=== PATIENT | male | born 2000 | race Caucasian/White ===

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

== ENCOUNTER 2022-03-01 19:00 | Outpatient (REF) | payer BC, SELFPAY ==
[2022-03-02 18:28] LABS: Bilirubin Negative (Negative); Blood Negative (Negative); Clarity Clear (Clear); Glucose Negative (Negative); Ketones Negative (Negative); Leukocyte Esterase Negative (Negative); Nitrite Negative (Negative); Specific Gravity 1.025 (1.005-1.025); Urobilinogen 0.2 EU/dL (Up TO 0.2)
[2022-03-02 20:38] LABS: Bacteria Negative HPF (Negative); C & S Indicated? No; Casts Negative LPF (Negative); Crystals Negative HPF (Negative); Epithelial Cells Negative HPF (Negative); Mucus Negative (Negative); Other Cells Negative (Negative); RBC Negative HPF (0-2); WBC Negative HPF (0-5)
== END 2022-03-01 19:01 | disposition home or self-care (01) ==
LOC: NCHCN 19:00
PROVIDERS: PCP Internal Medicine; Visit Provider Family Medicine
DX: R30.0 Dysuria (principal); R36.1 Hematospermia
CPT/HCPCS: 81003; 81015

== ENCOUNTER 2022-06-23 02:07 | Outpatient (CLI) | payer BC, SELFPAY ==
--- NOTE | 2022-06-23 12:15 | DI.MRI_ITS ---
Exam(s) MR BRAIN WO/W EXAM: MR BRAIN WO/W CLINICAL HISTORY: AVM surveillance, s/p gamma knife,Q28.2 TECHNIQUE: Multiplanar multisequence MRI of the brain was performed. CONTRAST MATERIAL: IV Contrast: 13 mL of Dotarem contrast administered. COMPARISON: MR MR BRAIN WO/W from 11/25/2020 FINDINGS: VENTRICLES AND EXTRA AXIAL SPACES: Normal in size and morphology for the patient's age. HEMORRHAGE: Gradient images show evidence of old hemorrhage associated with the AVM. CEREBRAL PARENCHYMA: There has been a significant decrease in the areas of restricted diffusion prese nt. There are few tiny areas of restricted diffusion along the medial high left parietal lobe. Ther e has been no significant change in the numerous tortuous vessels involving the left cerebral hemisph ere consistent with the patient's known AVM. There has been a decrease in the hyperintense signal on the FLAIR and T2 weighted images associated with the AVM. MIDLINE SHIFT: None. BRAINSTEM/CEREBELLUM: Normal. CALVARIUM: Normal. ENHANCEMENT: No suspicious enhancement identified. VISUALIZED PARANASAL SINUSES/MASTOIDS: There is a large mucous retention cyst or polyp in the right m axillary sinus. [place]: Normal flow void. PITUITARY GLAND: Unremarkable. OTHER FINDINGS: IMPRESSION: Stable appearance of the large left-sided AVM. DATA REPOSITORY:
[2022-06-23] MEDS: Normal Saline Flush 10 ML SYR IVP (12:17)
== END 2022-06-23 02:27 ==
PROVIDERS: PCP Internal Medicine; Visit Provider Psychiatry & Neurology Neurology
DX: Q28.2 Arteriovenous malformation of cerebral vessels (principal)
CPT/HCPCS: 70553

== ENCOUNTER 2022-07-09 20:24 | Emergency (ER) | payer BC, SELFPAY ==
[2022-07-09 20:24] VITALS: BP 141/68; PULSE 113; RESP 16; TEMP 36.9; O2SAT 100
[2022-07-09 20:38] VITALS: RESP 22
--- NOTE | 2022-07-09 20:45 | ED.GENADUL_ITS ---
Discharge Plan Disposition Patient Disposition: HOME Condition: Improving Discharge Details Chief Complaint: Anxiety Clinical Impression: Acute alteration in mental status Primary Care Provider: Matias Lua ED Provider: Jagjit Costa Home Meds and New Rx's Prescriptions: No Action naproxen [Naprosyn] 125 mg/5 mL suspension 500 mg PO BID PRN topiramate 50 mg capsule,sprinkle,ER 24hr 200 mg PO BID oxcarbazepine 300 mg tablet 300 mg PO BID Qty: 28 0RF Rx Instructions: Needs short supply until mail order comes levetiracetam [Roweepra] 500 mg tablet 500 mg PO BID Qty: 28 0RF Rx Instructions: Needs short supply until mail-order comes in verapamil [Calan] 80 MG tablet 120 mg PO BID Rx Instructions: take one 120mg table BID naproxen 250 mg Tablet 250 mg PO BID PRN Rx Instructions: PRN for CROCKER Discharge Instructions Instructions: Altered Mental Status (ED) Additional Instructions: Please follow-up with neurology as scheduled. Please return the emergency department if you develop any worsening symptoms. Medical Decision Making 21-year-old male history of brain AVM status post multiple gamma [place] state, epilepsy, compliant with medications, presents with brief change in consciousness in the setting of smoking marijuana with his cousin, felt very anxious does remember some of the events of the evening, endorses visualizing a pumping heart and taking about a brain bleed and a heart attack becoming very anxious and now waking to have his cousin shaking him. Patient is alert and oriented hemodynamically stable no hypoxia no external signs of trauma. Patient is not postictal. Compliant with antiepileptic medications. Chronic paresis of right upper extremity and contracture. 5-5 strength of remaining limbs, cranial nerves II through XII intact. Afebrile nonmeningeal. Patient does endorse longstanding anxiety regarding his AVM post concerned about having a brain bleed. High clinical suspicion that patient had a panic attack in the setting of marijuana use versus less likely seizure versus very unlikely intracranial hemorrhage given no new neurologic deficits headache vomiting or change in vital signs. Will provide rest anxiolysis and fluids close reassessment. Counseled patient regarding radiation exposure due to multiple CT scans as well as my clinical thought process however explained him that he has an adult if he is very concerned and who would make him feel better I am glad to obtain a CT head to assess for any intracranial process. Of note patient had a stable MRI within the last week. Will reassess after meds and re st. Likely home with close follow-up 23: 20 patient resting comfortably no acute distress. No seizure activity in the department. Alert and oriented. Feeling much better after meds fluids and rest. HPI General Date/Time Provider Initiated Documentation: 07/09/22 20:41 . HPI Narrative: 21-year-old male history of brain AVM, epilepsy, presents after having an episode of altered level of consciousness this evening in the setting of smoking marijuana with his cousin, felt anxiety and briefly forgets the series of events before awaking to have his cousin shaking him telling him to breathe, no postictal state, denies headache nausea or vomiting denies trouble breathing. Has had similar event while smoking marijuana in the past. Took his antiepileptic medications as normal. He is anxious about having a brain bleed. Has had multiple gamma knife procedures done [id number] to strength the AVM which is still present. Patient's normal seizure activity is twitching of the face and upper extremity. Did not have any of these symptoms tonight. Related Data Home Medications Medication Instructions Recorded Confirmed verapamil 80 mg tablet (Calan) 120 mg PO BID 09/28/16 12/16/21 naproxen 250 mg tablet 250 mg PO BID PRN 09/30/18 12/16/21 naproxen 125 mg/5 mL oral 500 mg PO BID PRN 11/03/21 12/16/21 suspension (Naprosyn) topiramate 50 mg capsule 200 mg PO BID 11/03/21 12/16/21 sprinkle,extended release 24 hr levetiracetam 500 mg tablet 500 mg PO BID #28 tabs 07/08/22 (Roweepra) oxcarbazepine 300 mg tablet 300 mg PO BID #28 tabs 07/08/22 Previous Rx's Medication Instructions Recorded levetiracetam 500 mg tablet 500 mg PO BID #28 tabs 07/08/22 (Roweepra) oxcarbazepine 300 mg tablet 300 mg PO BID #28 tabs 07/08/22 Allergies Allergy/AdvReac Type Severity Reaction Status Date / Time tetanus toxoid, adsorbed Allergy Unknown reaction Verified 12/16/21 13:51 as a baby per pt and mother 09/28/16 pertussis vaccine,adsorbed Allergy Verified 12/04/21 13:08 [Pertussis Vaccine,Adsorbed] General Stated Complaint: Anxiety VIANEY: 2 Review of Systems Narrative: Review of Systems Constitutional: negative Eyes: negative ENT: negative Cardiovascular: negative Respiratory: negative Gastrointestinal: negative : negative Musculoskeletal: negative Skin: negative Neurologic: Altered sensorium resolved Psych: negative PFSH All Active Problems (Updated 07/09/22 @ 22:22 by Jagjit Costa MD) Acute alteration in mental status (Acute) Weakness of right side of body (Acute) Medical History Cerebral arteriovenous malformation Eczema Heart murmur Migraine Partial seizure disorder Right spastic hemiparesis Situational anxiety Status post gamma knife treatment Brain Aug 2020, Sep 2021 Vasomotor phenomenon Family History Father Headache Mother Headache Social History Smoking/Tobacco Use Status: Never Smoking risk assessment performed?: Yes Alcohol Intake: never Drug use: Occasionally Substance use type: marijuana Household members: family Number of Children: 0 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 [employer] Do you feel safe at home: Yes Do you feel safe in your relationship?: Yes Exam Narrative Exam Narrative: Physical Examination General: alert, awake, cooperative, resting comfortably, no acute distress HEENT: normocephalic, atraumatic; PERRL, EOM intact, conjunctiva normal; no nasal discharge; moist mucous membranes, oral and pharyngeal mucosa normal, tolerating secretions Neck: supple, trachea midline; full ROM Chest: normal to inspection Respiratory: normal respiratory effort, speaking in full sentences, clear to auscultation, no wheezing, rales or rhonchi Cardiac: regular rate, regular rhythm, S1S2 intact, no murmurs rubs or gallops GI: abdomen soft, non-tender, non-distended; no palpable mass or hepatosplenomegaly Skin: no lesions, rashes or trauma appreciated Neuro: AAOx3, normal speech, 5-5 strength left upper and bilateral lower extremities, paresis and chronic contracture of right upper extremity, 4+ to 5 strength right lower extremity, cranial nerves II through XII intact Psych: Appropriate mood and affect Course Vital Signs Vital signs: Vital Signs Temperature 36.9 C 07/09/22 20:24 Pulse 113 H 07/09/22 20:24 Respiratory Rate 16 07/09/22 20:24 Blood Pressure 141/68 H 07/09/22 20:24 Pulse Oximetry 100 07/09/22 20:24 Temperature 36.9 C 07/09/22 20:24 Temperature Source Tympanic 07/09/22 20:24 Pulse 113 H 07/09/22 20:24 Respiratory Rate 22 07/09/22 20:38 Respiratory Effort 07/09/22 20:38 Respiratory Depth Normal 07/09/22 20:38 Respiratory Pattern Normal 07/09/22 20:38 Blood Pressure 141/68 H 07/09/22 20:24 Pulse Oximetry 100 07/09/22 20:24 Oxygen Delivery Method Room Air 07/09/22 20:24 Oxygen Flow Rate 0 07/09/22 20:24 Comment 07/09/22 20:24
[2022-07-09] MEDS: LORazepam 20 MG/10 ML VIAL IVP (20:59)
--- NOTE | 2022-07-09 21:00 | NUR.NOTE ---
Nursing Note:pt is on marijuana and very anxious. he does not like the feeling of the iv cath, the medication going in to the vein or the NS going into the vein. He agreed to the ativan but requested to wait on the NS. Spoke with Dr Rose and will be removing the iv and dc'ing the NS per his order
[2022-07-09 21:40] VITALS: BP 134/72; PULSE 90; RESP 16; O2SAT 100
[2022-07-09 22:27] VITALS: BP 126/64; PULSE 86; RESP 16; O2SAT 100
== END 2022-07-09 22:28 | disposition home or self-care (01) ==
PROVIDERS: Emergency Provider Emergency Medicine; PCP Internal Medicine
DX: R41.82 Altered mental status, unspecified (principal); F41.9 Anxiety disorder, unspecified; G83.21 Monoplegia of upper limb affecting right dominant side
CPT/HCPCS: 96361; 96374; 99284; J3490

== ENCOUNTER 2022-09-28 10:04 | Emergency (ER) | payer BC, SELFPAY ==
[2022-09-28] VITALS (22 sets, daily range): BP systolic 89–121; BP diastolic 47–69; PULSE 71–94; RESP 14–17; TEMP 37; O2SAT 96–100
--- NOTE | 2022-09-28 10:17 | DI.CT_ITS ---
Exam(s) CT HEAD WO EXAM: CT HEAD WO CLINICAL HISTORY: hx of avm, headache. TECHNIQUE: Imaging Protocol: Axial computed tomography images with coronal and sagittal reformatted images were created and reviewed COMPARISON: CT CT HEAD FOR STROKE PROTOCOL from 09/30/[address] HEAD WO from 11/10/2020 MR MR BRAIN WO/W from 06/23/2022 FINDINGS: There are no skull fractures. There is no fluid in the visualized paranasal sinuses. There is again noted left temporal and parietal calcifications related to a known prominent AVM at th is location and there are again noted porencephalic White matter changes in communication with the left lateral ventricle. However, there is now hyperdense acute blood cast in both lateral ventricles as well as the 3rd ventr icle and also in the 4th ventricle. There is no obvious intra-axial hemorrhage. No shift of midline structures. Ventricular size is not significantly increased. No new findings in the cerebellar hem ispheres. IMPRESSION: Left-side AVM, presently with acute intraventricular blood. Results called by myself to ER physician. RADIATION DOSE DELIVERED: Total DLP DATA REPOSITORY: All CT scans at this facility are submitted to the National Radiology Data Registry (NRDR) Dose Index Registry (DIR) with the [employer] (ACR). RADIATION OPTIMIZATION: All CT scans at this facility use at least one of these dose optimization te chniques: automated exposure control; mA and/or kV adjustment per patient size (includes targeted exa ms where dose is matched to clinical indication); or iterative reconstruction.
--- NOTE | 2022-09-28 10:19 | W.ED.GENAD ---
Discharge Plan Disposition Patient Disposition: [facility] Condition: Stable Discharge Details Clinical Impression: Intracranial hemorrhage Primary Care Provider: Matias Lua ED Provider: Stanford Becerra Home Meds and New Rx's Prescriptions: No Action sertraline 25 mg tablet 50 mg PO DAILY Qty: 60 5RF oxcarbazepine 300 mg tablet 300 mg PO BID Qty: 10 0RF Rx Instructions: Needs short supply until mail order comes topiramate 200 mg tablet 200 mg PO BID Qty: 180 3RF levetiracetam 750 mg tablet 750 mg PO BID Qty: 14 0RF Rx Instructions: Waiting on Rx coming in mail verapamil [Calan] 80 MG tablet 120 mg PO BID Rx Instructions: take one 120mg table BID Medical Decision Making 22 yo male with hx of AVM s/p previous gamma knife procedures in [place], prior migraines, right sided spastic hemiparesis, and epilepsy, comes in with slowly worsening headache starting last night after he went biking during the day, denies any falls or trauma. The pain radiates to the posterior neck and has had n/v and states tried taking nsaid but threw it up right after taking it. He denies fevers, chills, chest pain, abdomen pain. He arrives stable in no distress. He has weakness in the right arm and leg that he states is unchanged from baseline and no left sided weakness. PERRL, eomi, clear speech, no facial assymetry. Full rom of his neck and no meningismus. Suspect migraine, will treat with toradol and compazine and given his history obtain ct head to evaluate for possible hemorrhage. Not thunderclap in etiology so doubt subarachnoid hemorrhage. pt stable, ct does confirm hemorrhage, gcs 15. 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 Will discuss with [facility], pt still with gcs of 15 spoke with [address]surgery at [facility] Dr. Allison who accepted to their ED, pt updated and is in agreement with this plan Differential Diagnosis Differential Diagnosis: migraine, hemorrhage Medical Records Medical records reviewed: Yes I reviewed the patient's medical records. Imaging Data Radiologic Study: Attestation: I personally reviewed and interpreted this imaging study as follows: Imaging: CT Scan Radiologist's impression: Patient Name: Guy Talamantes Unit #: [id number] Loc: ER ? Ordering Provider:? Stanford Becerra M.D. Status: REG ER ? Primary Care Provider: Matias Lua M.D. Date of Exam: 09/28/22 Sex: M ? : 2000 Age: 22 ? Exam(s) a CT:CT head wo Exam(s) CT HEAD WO EXAM: ? CT HEAD WO CLINICAL HISTORY: ? hx of avm, headache. ? TECHNIQUE:? Imaging Protocol: Axial computed tomography images with coronal and sagittal reformatted images were created and reviewed COMPARISON:? CT CT HEAD FOR STROKE PROTOCOL from 09/30/[address] HEAD WO from 11/10/2020 MR MR BRAIN WO/W from 06/23/2022 FINDINGS: There are no skull fractures. There is no fluid in the visualized paranasal sinuses. There is again noted left temporal and parietal calcifications related to a known prominent AVM at this location and there are again noted porencephalic White matter changes in communication with the left lateral ventricle. However, there is now hyperdense acute blood cast in both lateral ventricles as well as the 3rd ventricle and also in the 4th ventricle.? There is no obvious intra-axial hemorrhage.? No shift of midline structures.? Ventricular size is not significantly increased.? No new findings in the cerebellar hemispheres. IMPRESSION: Left-side AVM, presently with acute intraventricular blood. Lab Data Lab results reviewed: Yes I reviewed the patient's lab results. HPI General Mode of arrival: ambulatory. Date/Time Provider Initiated Documentation: 09/28/22 10:05. Limitations to Documentation: no limitations. Information obtained by: patient. History of Present Illness 22 year old M presents to the emergency department with the chief complaint of headache, described as moderate, Quality is described as constant, and is localized to the head. Patient neck. Patient started experiencing this hour(s) (12) and it has been constant. No relieving factors improve symptom(s), No exacerbating factors reported . Patient notes nausea/vomiting. Patient did receive the following treatments prior to arrival, none Related Data Home Medications Medication Instructions Recorded Confirmed verapamil 80 mg tablet (Calan) 120 mg PO BID 09/28/16 09/28/22 topiramate 200 mg tablet 200 mg PO BID #180 tabs 07/14/22 09/28/22 oxcarbazepine 300 mg tablet 300 mg PO BID #10 tabs 09/20/22 09/28/22 sertraline 25 mg tablet 50 mg PO DAILY #60 tabs 09/20/22 09/28/22 levetiracetam 750 mg tablet 750 mg PO BID #14 tabs 09/27/22 09/28/22 Previous Rx's Medication Instructions Recorded topiramate 200 mg tablet 200 mg PO BID #180 tabs 07/14/22 oxcarbazepine 300 mg tablet 300 mg PO BID #10 tabs 09/20/22 sertraline 25 mg tablet 50 mg PO DAILY #60 tabs 09/20/22 levetiracetam 750 mg tablet 750 mg PO BID #14 tabs 09/27/22 Allergies Allergy/AdvReac Type Severity Reaction Status Date / Time tetanus toxoid, adsorbed Allergy Unknown reaction Verified 09/28/22 10:11 as a baby per pt and mother 09/28/16 pertussis vaccine,adsorbed Allergy Verified 09/28/22 10:11 [Pertussis Vaccine,Adsorbed] General Stated Complaint: Headache VIANEY: 3 Review of Systems All systems reviewed & are unremarkable except as noted in HPI and below Constitutional Constitutional: Denies chills, Denies fever(s) and Denies weakness Eyes Eyes: Denies loss of vision Cardiovascular Cardiovascular: Denies chest pain and Denies dyspnea Respiratory Respiratory: Denies cough and Denies dyspnea Gastrointestinal Gastrointestinal: Denies abdominal pain Integumentary/Breasts Skin/Breast: Denies rash Neurologic Neurologic: Denies loss of vision and Denies weakness PFSH All Active Problems (Updated 09/28/22 @ 13:11 by Stanford Becerra MD) Intracranial hemorrhage (Acute) Anxiety (Chronic) Weakness of right side of body (Acute) Medical History Cerebral arteriovenous malformation Eczema Heart murmur Migraine Partial seizure disorder Right spastic hemiparesis Situational anxiety Status post gamma knife treatment Brain Aug 2020, Sep 2021 Vasomotor phenomenon Family History Father Headache Mother Headache Social History Smoking/Tobacco Use Status: Never Smoking risk assessment performed?: Yes Alcohol Intake: current Alcohol Intake frequency: holidays/special occasions only Alcohol type: beer Drug use: Occasionally Substance use type: marijuana Household members: family Number of Children: 0 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 [employer] Do you feel safe at home: Yes Do you feel safe in your relationship?: Yes Exam Const General: no acute distress Orientation: alert HENMT Head: normal to inspection Ears: external ears normal General nose exam: external nose normal Mouth: moist mucous membranes Eyes General: appearance normal, both eyes and all related structures Neck Neck: normal visual inspection Resp Effort & Inspection: normal respiratory effort and able to speak in complete sentences Cardio Rate: regular rate Skin General skin exam: no rashes or lesions noted Neuro General: patient alert and patient oriented x3 Extrem General: capillary refill normal Psych Mental Status: mental status grossly normal Course Vital Signs Vital signs: Vital Signs Temperature 37.0 C 09/28/22 10:06 Pulse 94 H 09/28/22 10:06 Respiratory Rate 17 09/28/22 10:06 Blood Pressure 113/62 09/28/22 10:06 Pulse Oximetry 100 09/28/22 10:06 Temperature 37.0 C 09/28/22 10:06 Temperature Source Temporal Artery Scan 09/28/22 10:06 Pulse 94 H 09/28/22 10:06 Respiratory Rate 17 09/28/22 10:06 Respiratory Effort Non-Labored 09/28/22 10:10 Blood Pressure 113/62 09/28/22 10:06 Blood Pressure Position Sitting 09/28/22 10:06 Pulse Oximetry 100 09/28/22 10:06 Oxygen Delivery Method Room Air 09/28/22 10:06 Oxygen Flow Rate 0 09/28/22 10:06 Pain Level 8 09/28/22 10:11 PAWSS Have you Been Recently Intoxicated or Drunk Within the Last 30 days?: No Have you Ever Experienced Previous Episodes of Alcohol Withdrawal?: No Have you ever Experienced Withdrawal Seizures?: No Have you ever Experienced Delirium Tremens(DT)s?: No Have you ever undergone Alcohol Rehabilitation Treatment (i.e, inpt ot outpatient treatment programs)?: No Have you ever Experienced Blackouts?: No Have you ever Combined Alcohol with other Downers within the last 90 days?: No Have you ever Combined Alcohol with any other Substance of Abuse during the last 90 days?: No Result: 0
[2022-09-28] MEDS: Prochlorperazine 10 MG/2 ML VIAL IVP (10:41)
[2022-09-28] MEDS: Normal Saline 1,000 ML 1000 ML IV (10:41)
[2022-09-28] MEDS: Ketorolac 15 MG/ML VIAL IVP (10:41)
[2022-09-28 10:45] LABS: Abs Immature Grans 0.03 10^3/uL (0.0-0.06); Absolute Basophil Count 0.01 10^3/uL (0.0-0.2); Absolute Lymphocyte Count 0.61 10^3/uL (1.2-3.4); Absolute Monocyte Count 0.36 10^3/uL (0.1-0.8); Absolute Neutrophil Count 8.03 10^3/uL (1.2-6.7); Basophils % 0.1; HCT 41.8 % (40.0-50.0); HGB 14.8 g/dL (13.5-17.5); Immature Grans % 0.3; Lymphocytes % 6.7; MCH 31.7 pg (27.0-33.0); MCHC 35.4 % (32.0-36.0); MCV 90 fL (80-95); Neutrophils % 88.9; Platelet Count 200 10^3/uL (130-400); RBC 4.67 10^6/uL (4.36-5.78); RDW 11.8 % (11.8-14.1); WBC 9.04 10^3/uL (4.4-10.8)
[2022-09-28 11:01] LABS: ALT 19 U/L (16-63); AST 14 U/L (15-37); Albumin 4.8 g/dL (3.4-5.0); Alkaline Phosphatase 49 U/L (46-116); Anion Gap 12.7 mmol/L (3-11); BUN 16 mg/dL (7-18); Bilirubin, Total 0.6 mg/dL (0.2-1.0); CO2 21.3 mmol/L (21.0-32.0); Chloride 107 mmol/L (98-107); Glucose 113 mg/dL (74-106); Magnesium 2.1 mg/dL (1.8-2.4); Potassium 3.4 mmol/L (3.5-5.1); Sodium 141 mmol/L (136-145); Total Protein 7.5 g/dL (6.4-8.2)
[2022-09-28] MEDS: fentaNYL 100 MCG/2 ML VIAL 50 MCG IVP ×2 (12:01→13:52)
[2022-09-28 12:37] LABS: Source Nasal/Nares
[2022-09-28 13:08] LABS: COVID-19 PCR Negative (Negative)
== END 2022-09-28 14:09 ==
PROVIDERS: Emergency Provider Emergency Medicine; PCP Internal Medicine
DX: I62.9 Nontraumatic intracranial hemorrhage, unspecified (principal)
CPT/HCPCS: 36415; 80053; 87635; 96361; 96365; 96375; 99285; 70450; 83735; 85025; J0780; J1885; J1953; J3010

== ENCOUNTER 2022-12-31 00:24 | Outpatient (CLI) | payer BC, SELFPAY ==
--- NOTE | 2022-12-31 10:15 | DI.MRI_ITS ---
Exam(s) MR BRAIN WO/W EXAM: MR BRAIN WO/W CLINICAL HISTORY: H/O UNRESECTABLE DIFFUSE LT HEMISPHERIC AVM, PARIETAL LOBE, S/P GAMMAKNIFE TECHNIQUE: Multiplanar multisequence MRI of the brain was performed. Both noninfused and contrast i nfused sequences were performed. IV Contrast injected was 11 cc Dotarem. COMPARISON: MR MR BRAIN WO/W from 06/23/2022 FINDINGS: CEREBRAL PARENCHYMA: There is extensive serpentine vasculature again noted within the left mid-bag bailer ior cerebral hemisphere consistent with known large AVM at this level. Large draining veins extend t oward the superior sagittal sinus and left transverse sinus. Feeding vessels arrive from both the le ft anterior cerebral artery and middle cerebral artery as well as small feeders from the left posteri or cerebral artery. Large area of encephalomalacia is noted in the left posterior hemisphere in continuity with the left lateral ventricle and previously present on 06/23/2022. And there are extensive foci of susceptibili ty artifact throughout the posterior left cerebral hemisphere consistent with chronic hemosiderin and calcifications. Mild focus of increased signal in the posterior limb left internal capsule seen on FLAIR imaging is u nchanged. No evidence of acute hemorrhage, intra or extra-axial. No areas of restricted diffusion on DWI to suggest acute infarct. There are no ring enhancing lesions in the brain. There is no abnormal meningeal enhancement. PITUITARY GLAND: No mass nor parasellar abnormality. No obvious abnormality in the cavernous sinuses. PARANASAL SINUSES: Post inflammatory retention cyst noted in the right maxillary sinus measures 2.2 b y 1.8 cm. No associated fluid level. Sphenoid and frontal sinuses are clear as are the ethmoidal ai r cells and mastoid air cells. ORBITS: No obvious abnormal findings. IMPRESSION: 1. Again noted is a large predominantly left parietal lobe AVM as described above. 2. No areas of acute hemorrhage, intra or extra-axial. 3. minimal if any significant change when compared to prior MRI scan performed 06/23/2022 DATA REPOSITORY:
[2022-12-31] MEDS: Normal Saline Flush 10 ML SYR IVP (10:37)
--- NOTE | 2022-12-31 18:03 | DI.VRAD_ITS ---
PROCEDURE INFORMATION: Exam: MR Head Without and With Contrast Exam date and time: 12/31/2022 10:28 AM Age: 22 years old Clinical indication: Other: Vascular malformation; Additional info: Post gamma knife treatment TECHNIQUE: Imaging protocol: Magnetic resonance imaging of the head without and with contrast. COMPARISON: CT HEAD WO 09/28/2022 11:18 AM FINDINGS: Brain: Large region of chronic encephalomalacia in the left posterior cerebral hemisphere. Extensive foci of susceptibility artifact throughout the posterior left cerebral hemisphere most likely reflecting combination of calcifications and chronic hemosiderin deposition. Extensive serpentine vasculature is present within the left mid to posterior cerebral hemisphere compatible with known history of large arteriovenous malformation. Large draining veins anastomosing with the superior sagittal sinus and the left transverse sinus. Feeding vessels arise from both left anterior cerebral artery and middle cerebral artery arterial branches as well as small feeders from the left posterior cerebral artery. No definite evidence of intracranial hemorrhage or extra-axial fluid collection. No evidence of mass effect or midline shift. No restricted diffusion to suggest acute infarct. Cerebral ventricles: Ventricles, cisterns, and sulci are normal. Bones/joints: Unremarkable. Paranasal sinuses: Normal as visualized. No acute sinusitis. Mastoid air cells: No mastoid effusion. Orbital cavities: Unremarkable. Soft tissues: Unremarkable. IMPRESSION: Chronic large left cerebral hemisphere arteriovenous malformation status post gamma knife treatment, as detailed above. Continued follow-up at the discretion of neurosurgery Dictated and Authenticated by: Abimael Childers MD. Ordering:PINO Jaffe MD
== END 2022-12-31 00:44 ==
PROVIDERS: PCP Internal Medicine; Visit Provider Registered Nurse
DX: Q28.2 Arteriovenous malformation of cerebral vessels (principal)
CPT/HCPCS: 70553

== ENCOUNTER → 2023-10-17 02:44 | Outpatient (CLI) | payer BC, SELFPAY ==
--- NOTE | 2023-10-17 08:45 | DI.MRI_ITS ---
Exam(s) MR BRAIN WO/W EXAM: MR BRAIN WO/W CLINICAL HISTORY: f/up of gamma knife treatment, CEREBRAL ARTERIOVENOUS MALFORMATION. TECHNIQUE: Multiplanar multisequence MRI of the brain was performed. CONTRAST MATERIAL: IV Contrast: 12 ML of Dotarem contrast administered. COMPARISON: MR MR BRAIN WO/W from 12/31/2022 FINDINGS: VENTRICLES AND EXTRA AXIAL SPACES: Normal in size and morphology for the patient's age. HEMORRHAGE: None. CEREBRAL PARENCHYMA: No focus of restricted diffusion to suggest acute infarct. Stable appearance of large area of encephalomalacia of alveolar the posterior half of the left cerebral hemisphere. Multi ple serpiginous, dilated vessels are noted in this area, consistent with known AVM.. The findings ap pear unchanged MIDLINE SHIFT: None. BRAINSTEM/CEREBELLUM: Normal. CALVARIUM: Normal. VISUALIZED PARANASAL SINUSES/MASTOIDS: Small mucous retention cyst right maxillary sinus. IMPRESSION: Stable appearance of large area of encephalomalacia and dilated vessels related to AVM. DATA REPOSITORY:
[2023-10-17] MEDS: Normal Saline Flush 10 ML SYR IVP (14:00)
[2023-10-17] MEDS: Gadoterate meglumine 20 ML SYRINGE 12 ML IVP (14:01)
== END ==
PROVIDERS: PCP Internal Medicine; Visit Provider Psychiatry & Neurology Neurology
DX: Q28.2 Arteriovenous malformation of cerebral vessels (principal); Z92.3 Personal history of irradiation
CPT/HCPCS: 70553

== ENCOUNTER → 2024-04-17 03:26 | Outpatient (CLI) | payer BC, SELFPAY ==
--- NOTE | 2024-04-17 07:45 | DI.MRI_ITS ---
Exam(s) MR ANGIO BRAIN WO CLINICAL HISTORY: L large AVM,CEREBRAL ARTERIOVENOUS MALFORMATION,Q28.2. TECHNIQUE: 3D [id number] study was performed without contrast. COMPARISON: MRI brain 17 October 2023 FINDINGS: Carotid Arteries: Petrous: Normal. Cavernous: Normal. Cerebral: Normal. Middle Cerebral Arteries: Right: No aneurysm or significant stenosis. Left: No aneurysm or significant stenosis. Anterior Cerebral Arteries: Right: No aneurysm or significant stenosis. Left: No aneurysm or significant stenosis. Posterior cerebral arteries: Right: No aneurysm or significant stenosis Left: No aneurysm or significant stenosis Vertebral Arteries: Right: No aneurysm or significant stenosis. No dissection. Left: No aneurysm or significant stenosis. No dissection.. Basilar Artery: No aneurysm or significant stenosis. Innumerable dilated tortuous vessels are again noted involving the posterior left frontal region thro ugh the majority of the left parietal lobe. The are large draining veins extending into the superior sagittal sinus. No gross interval change based on previous MRI. IMPRESSION: Stable appearance of large left-sided AVM. DATA REPOSITORY:
== END ==
PROVIDERS: PCP Internal Medicine; Visit Provider Psychiatry & Neurology Neurology
DX: Q28.2 Arteriovenous malformation of cerebral vessels (principal)
CPT/HCPCS: 70544

== ENCOUNTER 2025-01-24 02:01 | Outpatient (CLI) | payer BC, SELFPAY ==
--- NOTE | 2025-01-24 07:15 | DI.MRI_ITS ---
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 TECHNIQUE: 3D [id number] study was performed without contrast. COMPARISON: None. FINDINGS: Carotid Arteries: Petrous: Normal. Cavernous: Normal. Cerebral: Normal. Middle Cerebral Arteries: Right: No aneurysm or significant stenosis. Left: No aneurysm or significant stenosis. Anterior Cerebral Arteries: Right: No aneurysm or significant stenosis. Left: No aneurysm or significant stenosis. Posterior cerebral arteries: Right: No aneurysm or significant stenosis Left: No aneurysm or significant stenosis Vertebral Arteries: Right: No aneurysm or significant stenosis. No dissection. Left: No aneurysm or significant stenosis. No dissection.. Basilar Artery: No aneurysm or significant stenosis. Small Vessels: No evidence of beading. No detectable change in innumerable tortuous vessels extending from the posterior right frontal regio n through the majority of the parietal lobe. Area of encephalomalacia noted in the left parietal lob e. Stable appearance of large draining veins entering into the superior sagittal sinus. 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 DATA REPOSITORY:
== END 2025-01-24 02:21 ==
LOC: DI 02:01
PROVIDERS: PCP Family Medicine; Visit Provider Psychiatry & Neurology Neurology
DX: Q28.2 Arteriovenous malformation of cerebral vessels (principal)
CPT/HCPCS: 70544